=== PATIENT | female | born 1990 | race Two or more races ===

== ENCOUNTER 2023-06-08 17:58 | Emergency (ER) | payer MEDICAID, OTHER ==
[~2023-06-08] VITALS: Ht 152.4 cm; Wt 95.0 kg
[2023-06-08 18:03] VITALS: BP 101/59; RESP 16; O2SAT 98
[2023-06-08 18:04] VITALS: PULSE 82
[2023-06-08 18:25] LABS: Basophils # (auto) 0 10 ^3/uL (0-0.2); Basophils % (auto) 0.7 % (0.0-2.0); Eosinophils # (auto) 0.2 10 ^3/uL (0-0.8); Eosinophils % (auto) 2.5 % (0.0-7.0); Hematocrit 33.2 % (36.0-46.0); Hemoglobin 10.4 g/dL (12.2-16.2); Lymphocytes # (auto) 1.8 10 ^3/uL (0.4-5.4); Lymphocytes % (auto) 25.6 % (10.0-50.0); Mean Corpuscular Hemoglobin 22.8 pg (28.0-32.0); Mean Corpuscular Hgb Conc. 31.4 g/dL (32.0-36.0); Mean Corpuscular Volume 72.8 fL (80.0-100.0); Monocytes # (auto) 0.5 10 ^3/uL (0-1.3); Monocytes % (auto) 7.1 % (0.0-12.0); Neutrophils # (auto) 4.5 10 ^3/uL (1.6-8.6); Neutrophils % (auto) 64.1 % (37.0-80.0); Nucleated Red Blood Cells % 0.1 %; Red Blood Cells 4.56 10^6/uL (4.0-5.20)
[2023-06-08 18:44] LABS: Albumin 3.5 g/dL (3.4-5.0); Calcium 8.5 mg/dL (8.5-10.1); Potassium 3.6 mmol/L (3.5-5.1)
[2023-06-08 18:48] LABS: BUN/Creatinine Ratio 10.8 (10.0-20.0); Bilirubin, Total 0.4 mg/dL (0.2-1.0); Total Protein 7.7 g/dL (6.4-8.2)
== END 2023-06-09 03:14 | disposition home or self-care (01) ==
LOC: EDBD 17:58 → ER 17:58
DX: F41.0 Panic disorder [episodic paroxysmal anxiety] (principal); R10.2 Pelvic and perineal pain; R55 Syncope and collapse; R42 Dizziness and giddiness; Z86.79 Personal history of other diseases of the circulatory system; Z88.6 Allergy status to analgesic agent
CPT/HCPCS: 36415; 80053; 83735; 84484; 84702; 85025; 93005

== ENCOUNTER 2024-04-02 08:38 | Emergency (ER) | payer MEDICAID ==
[~2024-04-02] VITALS: Ht 152.4 cm; Wt 93.9 kg
[~2024-04-02 08:38] MED LIST: CLIN1CAP70 PO; HYDR-4902 PO
[2024-04-02 09:27] LABS: Basophils # (auto) 0 10 ^3/uL (0-0.2); Eosinophils # (auto) 0.1 10 ^3/uL (0-0.8); Eosinophils % (auto) 1.1 % (0.0-7.0); Mean Corpuscular Hemoglobin 22.1 pg (28.0-32.0); Red Cell Distribution Width 18.1 % (11.8-14.3)
[2024-04-02 09:29] LABS: Basophils % (auto) 0.4 % (0.0-2.0); Hematocrit 33.4 % (36.0-46.0); Hemoglobin 10.4 g/dL (12.2-16.2); Lymphocytes # (auto) 1.8 10 ^3/uL (0.4-5.4); Lymphocytes % (auto) 26.9 % (10.0-50.0); Mean Corpuscular Hgb Conc. 31.2 g/dL (32.0-36.0); Mean Corpuscular Volume 70.9 fL (80.0-100.0); Monocytes # (auto) 0.4 10 ^3/uL (0-1.3); Monocytes % (auto) 5.3 % (0.0-12.0); Neutrophils # (auto) 4.4 10 ^3/uL (1.6-8.6); Neutrophils % (auto) 66.3 % (37.0-80.0); Nucleated Red Blood Cells % 0.1 %; Red Blood Cells 4.71 10^6/uL (4.0-5.20); White Blood Cell 6.7 10^3/uL (4.4-10.8)
[2024-04-02 09:44] LABS: Anion Gap 6 (5-15); Carbon Dioxide 25 mmol/L (20-30); Chloride 108 mmol/L (98-107); Potassium 3.6 mmol/L (3.5-5.1); Sodium 139 mmol/L (136-145)
[2024-04-02 09:45] LABS: Calcium 9.4 mg/dL (8.5-10.1)
[2024-04-02 09:46] LABS: Urine Bacteria FEW /hpf (None Seen); Urine Blood Negative /uL (Negative); Urine Color Yellow (Yellow); Urine Protein, UAD TRACE (Negative); Urine Specific Gravity 1.037 (1.001-1.035); Urine Urobilinogen Normal (Negative); Urine WBC 1 /hpf (0 - 5)
[2024-04-02 09:47] LABS: Urine Clarity Hazy (Clear)
[2024-04-02 09:50] LABS: BUN/Creatinine Ratio 9.8 (10.0-20.0); Blood Urea Nitrogen 6 mg/dL (9-23); Glucose 106 mg/dL (74-106)
[2024-04-02] MEDS: HYDROcodone-ACET 10/325MG TAB PO ONE (10:53)
[2024-04-02 11:00] VITALS: BP 120/79; TEMP 98.4
[2024-04-02 11:03] VITALS: PULSE 79; RESP 17; O2SAT 96
[2024-04-02] MEDS ORDERED: HYDR-4902 PO (11:07)
== END 2024-04-02 11:23 | disposition home or self-care (01) ==
LOC: ER 08:38
DX: M79.18 Myalgia, other site (principal); F41.9 Anxiety disorder, unspecified; Z88.8 Allergy status to other drugs, medicaments and biological substances; Z86.2 Personal history of diseases of the blood and blood-forming organs and certain disorders involving the immune mechanism
CPT/HCPCS: 36415; 80048; 81001; 85025

== ENCOUNTER 2024-05-06 12:19 | Emergency (ER) | payer MEDICAID ==
[~2024-05-06] VITALS: Ht 152.4 cm; Wt 95.8 kg
[2024-05-06 13:34] VITALS: BP 118/70; PULSE 95; RESP 16; TEMP 98; O2SAT 97
[2024-05-06] MEDS ORDERED: BACL10TA PO (14:12)
== END 2024-05-06 14:24 | disposition home or self-care (01) ==
LOC: ER 12:28
DX: S76.912A Strain of unspecified muscles, fascia and tendons at thigh level, left thigh, initial encounter (principal); G89.29 Other chronic pain; M54.50 Low back pain, unspecified; X58.XXXA Exposure to other specified factors, initial encounter; Y93.89 Activity, other specified; Y92.89 Other specified places as the place of occurrence of the external cause; Y99.8 Other external cause status
CPT/HCPCS: 93971

== ENCOUNTER 2024-07-25 10:51 | Emergency (ER) | payer MEDICAID ==
[~2024-07-25] VITALS: Ht 152.4 cm; Wt 93.0 kg
[~2024-07-25 10:51] MED LIST changes: +BACL10TA PO
[2024-07-25 11:29] VITALS: BP 130/78; PULSE 90; RESP 16; TEMP 98.4; O2SAT 97
[2024-07-25] MEDS ORDERED: METO25TA5 PO (11:36)
[2024-07-25] MEDS: METOPROLOL TARTRATE 25 MG TAB PO ONE (11:43)
== END 2024-07-25 11:45 | disposition home or self-care (01) ==
LOC: ER 10:51
DX: R00.2 Palpitations (principal); Z76.0 Encounter for issue of repeat prescription; F41.9 Anxiety disorder, unspecified; Z79.899 Other long term (current) drug therapy; Z98.890 Other specified postprocedural states

== ENCOUNTER 2024-12-31 20:42 | Emergency (ER) | payer MEDICAID ==
[~2024-12-31] VITALS: Ht 152.4 cm; Wt 94.4 kg
[~2024-12-31 20:42] MED LIST changes: +METO25TA5 PO
[2024-12-31 21:03] VITALS: BP 137/80; PULSE 94; RESP 20; TEMP 99; O2SAT 96
[2024-12-31] MEDS ORDERED: MET25T PO (22:07)
--- NOTE | 2024-12-31 22:08 | ED.PDOC ---
HPI Comments 34-YEAR-OLD FEMALE PRESENTS TO ER FOR MEDICATION REFILL. PATIENT REPORTS THAT SHE RAN OUT HER METOPROLOL 25 MG B.I.D. THIS MORNING AND PRESENTS TO ER FOR MEDICATION REFILL OF HIS MEDICATION. STATES SHE TAKES THIS MEDICATION FOR "TACHYCARDIA" AND IS GOING TO BE FOLLOWING UP WITH HER NEW PRIVATE BRANCH EXCHANGE OPERATOR NEXT WEEK. PATIENT PRESENTS TO ER AMBULATORY ON ARRIVAL, WITH STEADY GAIT, IN NO DISTRESS AND STATES SHE CURRENTLY IS NOT EXPERIENCING ANY SYMPTOMS. DENIES SHORTNESS OF BREATH, CHEST PAIN, PALPITATIONS, SYNCOPE OR ANY FURTHER SYMPTOMS/COMPLAINTS Chief Complaint: Palpitations Time Seen by MD: 20:44 Primary Care Provider: JANNET Reviewed Notes: Nurses Notes, Medications, Allergies Allergies: Coded Allergies: NSAIDs (Verified Allergy, Unknown, 06/08/23) Home Meds Active Scripts Metoprolol Tartrate (Metoprolol Tartrate) 25 Mg Tab, 1 TAB PO BID, #14 TAB 0 Refills Prov:WILLIE CORDERO 12/31/24 Metoprolol Tartrate (Metoprolol Tartrate) 25 Mg Tab, 1 TAB PO BID, #60 TAB 2 Refills Prov:ELIU LYNN 07/25/24 Baclofen (Baclofen) 10 Mg Tab, 10 MG PO BID, #20 TAB Prov:JOSY MARIANO 05/06/24 Hydrocodone-Acetaminophen (Hydrocodone Bitartrate/AC 5-325 mg) 1 Tab Tab, 1 TAB PO DAILY for 3 Days, #3 TAB Prov:ESTHELA LACY MD 04/02/24 Hydrocodone-Acetaminophen (Hydrocodone Bitartrate/AC 5-325 mg) 1 Tab Tab, 1 TAB PO Q6HPRN PRN, #10 TAB As needed for pain Prov:JENNA ALTAMIRANOA Q VOLUNTEER SERVICES MANAGER 01/24/24 Clindamycin Hcl (Clindamycin Hcl) 300 Mg Cap, 1 CAP PO QID for 10 Days, #40 CAP Prov:HARLAN ALTAMIRANOALDA Q VOLUNTEER SERVICES MANAGER 01/24/24 Discontinued Reported Medications Metoprolol Tartrate (Lopressor) 25 Mg Tb, 1 TAB PO BID, #14 12/31/24 Information Source: Patient Mode of Arrival: Ambulatory Past Medical History PAST MEDICAL HISTORY: Anemia, Anxiety, UTI'S Past Medical History (Other): SVT Surgical History: NURSE SITTER History: Denies all NURSE SITTER Hx Family History Family History: Unknown Social History Smoker: Non-Smoker Alcohol: Denies ETOH Use Drugs: Denies Drug Use Lives In: Home Constitutional: denies: chills, diaphoresis, fatigue, fever, malaise, sweats, weakness, others EENTM: denies: blurred vision, double vision, ear bleeding, ear discharge, ear drainage, ear pain, ear ringing, eye pain, eye redness, hearing loss, mouth pain, mouth swelling, nasal discharge, nose bleeding, nose congestion, nose pain, photophobia, tearing, throat pain, throat swelling, voice changes, others Respiratory: denies: cough, hemoptysis, orthopnea, SOB at rest, shortness of breath, SOB with excertion, stridor, wheezing, others Cardiovascular: reports: others ( STATED IN HPI) Gastrointestinal: denies: abdomen distended, abdominal pain, blood streaked bowels, constipated, diarrhea, dysphagia, difficulty swallowing, hematemesis, melena, nausea, poor appetite, poor fluid intake, rectal bleeding, rectal pain, vomiting, others Genitourinary: denies: abnormal vagina bleeding, burning, dyspareunia, dysuria, flank pain, frequency, hematuria, incontinence, pain, , vagina discharge, urgency, others Neurological: denies: dizziness, fainting, headache, left sided numbness, left sided weakness, numbness, paresthesia, pre-existing deficit, right sided numbness, right sided weakness, seizure, speech problems, tingling, tremors, weakness, others Musculoskeletal: denies: back pain, gout, joint pain, joint swelling, muscle pain, muscle stiffness, neck pain, others Integumetry: denies: bruises, change in color, change in hair/nails, dryness, laceration, lesions, lumps, rash, wounds, others Allergic/Immunocompromised: denies: Difficulty Healing, Frequent Infections, Hives, Itching, others Hematologic/Lymphatic: denies: anemia, blood clots, easy bleeding, easy bruising, swollen glands, others Endocrine: denies: excessive hunger, excessive sweating, excessive thirst, excessive urination, flushing, intolerance to cold, intolerance to heat, unexplained weight gain, unexplained weight loss, others Psychiatric: denies: anxiety, bipolar disorder, depression, hopeless, panic disorder, schizophrenia, sleepless, suicidal, others Physical Exam General Appearance: No Apparent Distress, Obese HEENT: Normal ENT Inspection, PERRL/EOMI, Pharynx Normal, TMs Normal Neck: Full Range of Motion, Non-Tender, Normal Respiratory: Chest Non-Tender, Lungs Clear, No Accessory Muscle Use, No Respiratory Distress, Normal Breath Sounds Cardiovascular: No Murmur, No Gallop, Regular Rate/Rhythm Breast Exam: Deferred Gastrointestinal: NOT DONE Genitalia: Deferred Pelvic: Deferred Rectal: Deferred Extremities: Normal capillary refill, Normal range of motion Neurologic: Alert, tie bucker II-XII nml as Tested, No Motor Deficits, Normal Affect, Normal Mood, No Sensory Deficits Cerebellar Function: Normal Reflexes: Normal Skin: Dry, Normal Color, Warm Peripheral Pulses: 2+ Radial (R), 2+ Radial (L), 2+ Brachial (R), 2+ Brachial (L) Lymphatic: No Adenopathy Was a procedure done? Was a procedure done?: No Sedation Sedation?: No CP Differential Dx Differential Diagnosis: Anxiety / Panic Attack, CA, PSVT, Pulmonary Embolus X-Ray, Labs, Meds, VS Vital Signs Date Time Temp Pulse Resp B/P (MAP) Pulse Ox O2 Delivery O2 Flow Rate FiO2 12/31/24 22:25 94 137/80 12/31/24 21:03 99.0 94 20 137/80 (99) 96 Current Medications Medications (Trade) Dose Ordered Sig/Katrina Route Start Time Stop Time Status Last Admin Metoprolol Tartrate (Lopressor Tablet) 25 mg ONCE ONCE PO 12/31/24 22:15 12/31/24 22:16 DC 12/31/24 22:25 METOPROLOL 25 MG PO ORDERED PATIENT ASYMPTOMATIC DURING ER VISIT/PRIOR TO DISCHARGE ADVISED TO FOLLOW UP WITH PCP AND PRIVATE BRANCH EXCHANGE OPERATOR IN 1-2 DAYS PATIENT VERBALIZED UNDERSTANDING AND AGREEABLE WITH CURRENT PLAN OF CARE ADVISED TO RETURN TO ER IMMEDIATELY IF SYMPTOMS WORSEN Time of 1ST Reevaluation: 21:44 Reevaluation 1ST: N/A Patient Education/Counseling: Diagnosis, Treatment, Prognosis, Need For Follow Up Family Education/Counseling: No Family Present Departure 1 Departure Time of Disposition: 22:02 Impression: Primary Impression: Medication refill Additional Impression: History of supraventricular tachycardia Disposition: HOME / SELF CARE / HOMELESS Condition: Stable e-Prescriptions Metoprolol Tartrate (Metoprolol Tartrate) 25 Mg Tab 1 TAB PO BID, #14 TAB 0 Refills Prov: WILLIE CORDERO 12/31/24 Discharged With: Self Critical Care Note Critical Care Time?: No Stability Stability form required: No Heart Score Heart Score: Heart Score Response (Comments) Value History N/A 0 EKG N/A 0 Age N/A 0 Risk Factors N/A 0 Troponin N/A 0 Total 0 WILLIE CORDERO Dec 31, 2024 22:08
[2024-12-31] MEDS: METOPROLOL TARTRATE 25 MG TAB PO ONE (22:25)
[2024-12-31] MEDS ORDERED: METO25TA5 PO (22:28)
== END 2024-12-31 22:45 | disposition home or self-care (01) ==
LOC: ER 20:42
DX: R00.0 Tachycardia, unspecified (principal); Z76.0 Encounter for issue of repeat prescription; Z86.79 Personal history of other diseases of the circulatory system; F41.9 Anxiety disorder, unspecified; Z79.899 Other long term (current) drug therapy; Z98.890 Other specified postprocedural states; Z79.1 Long term (current) use of non-steroidal anti-inflammatories (NSAID)

== ENCOUNTER 2025-02-18 13:18 | Emergency (ER) | payer MEDICAID ==
[~2025-02-18] VITALS: Ht 152.4 cm; Wt 94.0 kg
--- NOTE | 2025-02-18 13:28 | ECG ---
[facility] Test Date: 2025-02-18 Test Time: 13:26:51 Pat Name: TREMAINE MEZA Department: ER Room: Gender: F Medical Supervisor: [place] : 1990 Requested By: RASHMI ANGUIANO Order Number: [id number] Reading MD: Measurements Intervals [place] Rate: 98 P: 46 MA: 122 QRS: 21 QRSD: 82 T: -33 QT: 386 QTc: 493 Interpretive Statements Sinus rhythm Borderline T abnormalities, diffuse leads Borderline prolonged QT interval Please click the below link to view image of tracing.
--- NOTE | 2025-02-18 14:08 | ED.PDOC ---
HPI Comments 34 year old female presents to the ED with chief complaint of chest pain. Patient reports that she has been experiencing left sided chest pressure/aching with associated palpitations lightheadedness, and SOB with exertion since earlier today in [facility]. Patient relays that she has history of anemia and her last menses was heavy. Patient states she currently takes Metoprolol for intermittent tachycardia. Patient denies any dizziness, headache, numbness, weakness, cough, or fever. Chief Complaint: Chest Pain Time Seen by MD: 14:02 Primary Care Provider: NICKY Reviewed Notes: Nurses Notes, Medications, Allergies Allergies: Coded Allergies: NSAIDs (Verified Allergy, Unknown, 06/08/23) Home Meds Active Scripts Metoprolol Tartrate (Metoprolol Tartrate) 25 Mg Tab, 1 TAB PO BID, #14 TAB 0 Refills Prov:WILLIE CORDERO 12/31/24 Metoprolol Tartrate (Metoprolol Tartrate) 25 Mg Tab, 1 TAB PO BID, #60 TAB 2 Refills Prov:ELIU LYNN 07/25/24 Baclofen (Baclofen) 10 Mg Tab, 10 MG PO BID, #20 TAB Prov:JOSY MARIANO 05/06/24 Hydrocodone-Acetaminophen (Hydrocodone Bitartrate/AC 5-325 mg) 1 Tab Tab, 1 TAB PO DAILY for 3 Days, #3 TAB Prov:ESTHELA LACY MD 04/02/24 Hydrocodone-Acetaminophen (Hydrocodone Bitartrate/AC 5-325 mg) 1 Tab Tab, 1 TAB PO Q6HPRN PRN, #10 TAB As needed for pain Prov:TEJA ALTAMIRANO Q NEUROPHYSIOLOGY TECH 01/24/24 Clindamycin Hcl (Clindamycin Hcl) 300 Mg Cap, 1 CAP PO QID for 10 Days, #40 CAP Prov:TEJA ALTAMIRANO Q NEUROPHYSIOLOGY TECH 01/24/24 Information Source: Patient, Relative Mode of Arrival: Wheelchair Severity: Moderate Timing: Days Duration: Intermittent Prehospital treatment: None Location: Chest (L) Radiation: No Radiation Quality: Pressure, Aching Onset: At Rest, With Light Exertion History of: Similar pain in past Associated Signs and Symptoms: SOB, Palpitations Past Medical History PAST MEDICAL HISTORY: Anemia, Anxiety, UTI'S Surgical History: , Tubal Ligation CASH CLERK History: Denies all CASH CLERK Hx Family History Family History: Unknown Social History Smoker: Non-Smoker Alcohol: Denies ETOH Use Drugs: Denies Drug Use Lives In: Home Constitutional: denies: chills, diaphoresis, fatigue, fever, malaise, sweats, weakness, others EENTM: denies: blurred vision, double vision, ear bleeding, ear discharge, ear drainage, ear pain, ear ringing, eye pain, eye redness, hearing loss, mouth pain, mouth swelling, nasal discharge, nose bleeding, nose congestion, nose pain, photophobia, tearing, throat pain, throat swelling, voice changes, others Respiratory: reports: SOB with excertion; denies: cough, hemoptysis, orthopnea, SOB at rest, shortness of breath, stridor, wheezing, others Cardiovascular: reports: chest pain, lightheadedness, palpitations; denies: dizzy spells, diaphoresis, Dyspnea on exertion, edema, irregular heart beat, left arm pain, PND, syncope, others Gastrointestinal: denies: abdomen distended, abdominal pain, blood streaked bowels, constipated, diarrhea, dysphagia, difficulty swallowing, hematemesis, melena, nausea, poor appetite, poor fluid intake, rectal bleeding, rectal pain, vomiting, others Genitourinary: denies: abnormal vagina bleeding, burning, dyspareunia, dysuria, flank pain, frequency, hematuria, incontinence, pain, , vagina discharge, urgency, others Neurological: denies: dizziness, fainting, headache, left sided numbness, left sided weakness, numbness, paresthesia, pre-existing deficit, right sided numbness, right sided weakness, seizure, speech problems, tingling, tremors, weakness, others Musculoskeletal: denies: back pain, gout, joint pain, joint swelling, muscle pain, muscle stiffness, neck pain, others Integumetry: denies: bruises, change in color, change in hair/nails, dryness, laceration, lesions, lumps, rash, wounds, others Allergic/Immunocompromised: denies: Difficulty Healing, Frequent Infections, Hives, Itching, others Hematologic/Lymphatic: denies: anemia, blood clots, easy bleeding, easy bruising, swollen glands, others Endocrine: denies: excessive hunger, excessive sweating, excessive thirst, excessive urination, flushing, intolerance to cold, intolerance to heat, unexplained weight gain, unexplained weight loss, others Psychiatric: denies: anxiety, bipolar disorder, depression, hopeless, panic disorder, schizophrenia, sleepless, suicidal, others All Other Systems: Reviewed and Negative Physical Exam General Appearance: Mild Distress HEENT: Other (Pupils and face symmetric. Moist mucous membranes.) Neck: Full Range of Motion, Normal Inspection Respiratory: Lungs Clear, No Accessory Muscle Use, No Respiratory Distress, Normal Breath Sounds Cardiovascular: No Edema, No JVD, Regular Rate/Rhythm Breast Exam: Deferred Gastrointestinal: Non Tender, Soft Genitalia: Deferred Pelvic: Deferred Rectal: Deferred Extremities: Normal inspection, Normal range of motion, Non-tender, No pedal edema Musculoskeletal : Apperance: Normal Neurologic: Alert, Normal Affect, Normal Mood, Other (Ambulatory without difficulty.) Cerebellar Function: NOT DONE Reflexes: NOT DONE Skin: Dry, Pallor, Warm Lymphatic: NOT DONE EKG EKG : Comments Sinus rhythm, rate 95, normal intervals, normal axis, normal QRS, nonspecific T changes. Was a procedure done? Was a procedure done?: No CP Differential Dx Differential Diagnosis: Angina, Anxiety / Panic Attack, Heart Failure, MA, Pu lmonary Embolus, Other (Anemia) Differential Diagnosis: Aortic dissection, Chest Wall Pain, Gastritis, [place] cardial Infarction, Pericarditis, Pneumonia X-Ray, Labs, Meds, VS Vital Signs Date Time Temp Pulse Resp B/P (MAP) Pulse Ox O2 Delivery O2 Flow Rate FiO2 02/18/25 17:36 85 16 99 Room Air 02/18/25 17:36 98.2 85 16 105/52 (69) 99 98.2 02/18/25 14:20 95 02/18/25 13:54 95 130/77 98 138/82 97 141/82 02/18/25 13:26 98 02/18/25 13:20 98.5 95 18 130/77 (94) 97 98.5 Lab Test 02/18/25 17:55 02/18/25 14:34 02/18/25 13:35 02/18/25 13:25 Range/Units Urine Color Colorless Yellow Urine Clarity Clear Clear Urine pH 6.5 5.0-9.0 Urine Specific [place] 1.006 1.001-1.035 Urine Protein Negative Negative Urine Ketones Negative Negative Urine Blood Negative Negative /uL Urine Nitrite Negative Negative Urine Bilirubin Negative Negative Urine Urobilinogen Normal Negative mg/dL Urine Leukocyte Esterase Negative Negative /uL Urine RBC <1 0 - 4 /hpf Urine Microscopic WBC Pending Urine Squamous Epithelial Cells Few <5 /hpf Urine Bacteria Few H None Seen /hpf Urine Glucose Normal Normal mg/dL Sodium Level 139 136-145 mmol/L Potassium Level 3.7 3.5-5.1 mmol/L Chloride Level 104 98-107 mmol/L Carbon Dioxide Level 27 20-31 mmol/L Anion Gap 8 5-15 Blood Urea Nitrogen 6 L 9-23 mg/dL Creatinine 0.65 0.550-1.02 mg/dL Glomerular Filtration Rate Calc 119 >90 mL/min BUN/Creatinine Ratio 9.2 L 10.0-20.0 Serum Glucose 131 H 74-106 mg/dL Calcium Level 9.3 8.7-10.4 mg/dL Troponin I High Sensitivity < 3 L < 3 L </=34 ng/L POC Glucose 135 H 70-106 mg/dl White Blood Count 6.6 4.4-10.8 10^3/uL Red Blood Count 4.43 4.0-5.20 10^6/uL Hemoglobin 10.0 L 12.2-16.2 g/dL Hematocrit 31.8 L 36.0-46.0 % Mean Corpuscular Volume 71.7 L 80.0-100.0 fL Mean Corpuscular Hemoglobin 22.6 L 28.0-32.0 pg Mean Corpuscular Hemoglobin Concent 31.5 L 32.0-36.0 g/dL Red Cell Distribution Width 19.4 H 11.8-14.3 % Platelet Count 299 140-450 10^3/uL Mean Platelet Volume 8.9 6.9-10.8 fL Neutrophils (%) (Auto) 63.6 37.0-80.0 % Lymphocytes (%) (Auto) 31.6 10.0-50.0 % Monocytes (%) (Auto) 3.7 0.0-12.0 % Eosinophils (%) (Auto) 0.8 0.0-7.0 % Basophils (%) (Auto) 0.3 0.0-2.0 % Neutrophils # (Auto) 4.2 1.6-8.6 10 ^3/uL Lymphocytes # (Auto) 2.1 0.4-5.4 10 ^3/uL Monocytes # (Auto) 0.2 0-1.3 10 ^3/uL Eosinophils # (Auto) 0.1 0-0.8 10 ^3/uL Basophils # (Auto) 0 0-0.2 10 ^3/uL Nucleated Red Blood Cells 0.3 % Prothrombin Time 10.7 9.3-11.8 sec Prothrombin Time INR 1.01 0.9-1.15 Activated Partial Thromboplast Time 29.2 24.5-34.5 SEC D-Dimer, Quantitative 0.23 0.0-0.49 mg/L FEU B-Type Natriuretic Peptide 10.26 0-100 pg/mL Current Medications Medications (Trade) Dose Ordered Sig/Katrina Route Start Time Stop Time Status Last Admin Sodium Chloride 1,000 ml @ 1,000 mls/hr Q1H ONCE IV 02/18/25 17:30 02/18/25 18:29 DC 02/18/25 17:52 Chest XR: IMPRESSION: 1. No acute cardiopulmonary disease. X-Ray, Labs, Meds, VS Comment 34-year-old female with a history of anemia and tachycardia on metoprolol brought in by family for evaluation of chest pain, generalized weakness, lightheadedness, palpitations and shortness a breath Vitals unremarkable Exam remarkable for pallor Rhythm strip independently interpreted by me: Sinus rhythm, rate 95, no ectopy. Chest x-ray unremarkable CBC remarkable for hemoglobin 10, hematocrit 31.8, metabolic panel unremarkable, BNP and troponin x2 negative, coag panel normal, D-dimer Patient treated with the following in the ED: 1 L 0.9 normal saline IV bolus, [place] 5/325 mg p.o. Hospitalization was considered and was offered to the patient, however patient had rapid improvement of symptoms with treatment in the ED, and she stated she did not want to be hospitalized and would prefer to follow-up with her primary physician as an outpatient. Preliminary workup is negative, patient is now asymptomatic and appears stable for discharge with close outpatient follow-up with her primary physician. Time of 1ST Reevaluation: 15:02 Reevaluation 1ST: Improved Patient Education/Counseling: Diagnosis, Treatment Family Education/Counseling: Diagnosis, Treatment Additional Information -Reviewed patient's previous visit(s): 12/31/24 for med refill - The following tests were ordered, and results were reviewed by me: Type/Screen, BMP, CBC, BNP, PTPTT, UA, Troponin, EKG, Chest XR - Additional information was gathered from interviewing the following independent Historian: Family - I reviewed and agreed with the following test results read by other provider: Chest XR - I discussed treatments and results with medical personnel and: patient and family Comprehensive systems review obtained and negative except for what is stated in the HPI. Departure 1 Departure Time of Disposition: 19:18 Impression: Primary Impression: Chest pain with low risk for cardiac etiology Additional Impression: Anemia Qualified Codes: D64.9 - Anemia, unspecified Disposition: HOME / SELF CARE / HOMELESS Condition: Stable Additional Instructions: Your blood tests, including screening test for heart attack, heart failure, and blood clots, were essentially unremarkable except for mild anemia. You do not require blood transfusion at this time. Follow-up with your primary doctor in 1-2 days and with your label printing machinist as scheduled. Discharged With: Relative Critical Care Note Critical Care Time?: No Stability Stability form required: No Heart Score Heart Score: Heart Score Response (Comments) Value History Moderate Suspicious 1 EKG Repolarization Disturb 1 Age <45 0 Risk Factors No known risk factors 0 Troponin Normal limit 0 Total 2 I personally scribed for RASHMI SHELL MD ([email or web address]) on 02/18/25 at 14:08. Electronically submitted by Aren Poe ([email or web address]). I personally scribed for RASHMI SHELL MD ([email or web address]) on 02/18/25 at 15:25. Electronically submitted by Aren Poe ([email or web address]). RASHMI SHELL MD Feb 18, 2025 14:08
--- NOTE | 2025-02-18 14:38 | DVH ---
CHEST RADIOGRAPH Indication: cp Technique: Single frontal view of the chest was obtained Comparison: None FINDINGS: Lines and Tubes: None Lungs: No focal consolidation. Pleura: No effusion. No pneumothorax. Cardiomediastinal contours: Unremarkable Bones: No acute osseous abnormality. IMPRESSION: 1. No acute cardiopulmonary disease.
[2025-02-18 14:51] LABS: Basophils # (auto) 0 10 ^3/uL (0-0.2); Basophils % (auto) 0.3 % (0.0-2.0); Eosinophils # (auto) 0.1 10 ^3/uL (0-0.8); Mean Corpuscular Hemoglobin 22.6 pg (28.0-32.0); Monocytes # (auto) 0.2 10 ^3/uL (0-1.3)
[2025-02-18 14:52] LABS: Eosinophils % (auto) 0.8 % (0.0-7.0); Hematocrit 31.8 % (36.0-46.0); Lymphocytes # (auto) 2.1 10 ^3/uL (0.4-5.4); Lymphocytes % (auto) 31.6 % (10.0-50.0); Mean Corpuscular Hgb Conc. 31.5 g/dL (32.0-36.0); Mean Corpuscular Volume 71.7 fL (80.0-100.0); Monocytes % (auto) 3.7 % (0.0-12.0); Neutrophils # (auto) 4.2 10 ^3/uL (1.6-8.6); Neutrophils % (auto) 63.6 % (37.0-80.0); Nucleated Red Blood Cells % 0.3 %; Platelet Count (auto) 299 10^3/uL (140-450); Red Blood Cells 4.43 10^6/uL (4.0-5.20); Red Cell Distribution Width 19.4 % (11.8-14.3); White Blood Cell 6.6 10^3/uL (4.4-10.8)
[2025-02-18 15:06] LABS: INR 1.01 (0.9-1.15); Partial Thromboplastin Time 29.2 SEC (24.5-34.5); Prothrombin Time 10.7 sec (9.3-11.8)
[2025-02-18 15:19] LABS: Chloride 104 mmol/L (98-107); Potassium 3.7 mmol/L (3.5-5.1); Sodium 139 mmol/L (136-145)
[2025-02-18 15:20] LABS: Anion Gap 8 (5-15); Carbon Dioxide 27 mmol/L (20-31)
[2025-02-18 15:21] LABS: Calcium 9.3 mg/dL (8.7-10.4)
[2025-02-18 15:25] LABS: BUN/Creatinine Ratio 9.2 (10.0-20.0)
[2025-02-18 15:27] LABS: Blood Urea Nitrogen 6 mg/dL (9-23); Glucose 131 mg/dL (74-106)
[2025-02-18] MEDS: HYDROcodone-ACET 5/325MG TAB PO ONE (17:51)
[2025-02-18] MEDS: SODIUM CHLORIDE 0.9% 1,000 ML IV ONE (17:52)
[2025-02-18 19:08] LABS: Urine Bacteria FEW /hpf (None Seen); Urine Blood Negative /uL (Negative); Urine Clarity Clear (Clear); Urine Color Colorless (Yellow); Urine Protein, UAD Negative (Negative); Urine Specific Gravity 1.006 (1.001-1.035); Urine Squamous Epithelial Cell FEW /hpf (<5); Urine Urobilinogen Normal (Negative); Urine pH 6.5 (5.0-9.0)
[2025-02-18 19:25] VITALS: BP 123/57; TEMP 98
[2025-02-18 19:30] VITALS: PULSE 79; RESP 16; O2SAT 100
[2025-02-18 19:40] LABS: Urine WBC < 1 /HPF (0-5)
--- NOTE | 2025-02-20 12:54 | ECG ---
[facility] Test Date: 2025-02-18 Test Time: 14:20:07 Pat Name: TREMAINE MEZA Department: ED Room: Gender: F Public Policy Mediator: FARHAD : 1990 Requested By: RASHMI ANGUIANO Order Number: [id number] Reading MD: Measurements Intervals [place] Rate: 95 P: 12 NV: 132 QRS: 13 QRSD: 79 T: -7 QT: 347 QTc: 436 Interpretive Statements Sinus rhythm Borderline T abnormalities, diffuse leads Baseline wander in lead(s) V5 Please click the below link to view image of tracing.
== END 2025-02-18 19:53 | disposition home or self-care (01) ==
LOC: ER 13:18
DX: R07.89 Other chest pain (principal); D64.9 Anemia, unspecified; F41.9 Anxiety disorder, unspecified; Z98.51 Tubal ligation status; Z98.890 Other specified postprocedural states; Z79.899 Other long term (current) drug therapy; Z79.1 Long term (current) use of non-steroidal anti-inflammatories (NSAID)
CPT/HCPCS: 36415; 71045; 80048; 81001; 82947; 83880; 84484; 85025; 85379; 85610; 85730; 86850; 86900; 86901; 93005; 96360; 99285; J7030; 82962

== ENCOUNTER 2025-04-12 23:15 | Emergency (ER) | payer MEDICAID ==
[~2025-04-12] VITALS: Ht 152.4 cm; Wt 94.0 kg
[2025-04-12 23:22] VITALS: BP 133/82; RESP 20; TEMP 98.5; O2SAT 100
[2025-04-13] MEDS ORDERED: SODIUM CHLORIDE 0.9% 1,000 ML IV ONE (00:30)
[2025-04-13 00:32] LABS: Basophils # (auto) 0 10 ^3/uL (0-0.2); Basophils % (auto) 0.2 % (0.0-2.0); Eosinophils # (auto) 0.1 10 ^3/uL (0-0.8); Eosinophils % (auto) 0.8 % (0.0-7.0); Hematocrit 36.3 % (36.0-46.0); Hemoglobin 11.9 g/dL (12.2-16.2); Lymphocytes # (auto) 1.6 10 ^3/uL (0.4-5.4); Lymphocytes % (auto) 17.7 % (10.0-50.0); Mean Corpuscular Hemoglobin 25.2 pg (28.0-32.0); Mean Corpuscular Hgb Conc. 32.7 g/dL (32.0-36.0); Monocytes # (auto) 0.5 10 ^3/uL (0-1.3); Monocytes % (auto) 5.5 % (0.0-12.0); Neutrophils # (auto) 6.6 10 ^3/uL (1.6-8.6); Neutrophils % (auto) 75.8 % (37.0-80.0); Nucleated Red Blood Cells % 0.1 %; Platelet Count (auto) 294 10^3/uL (140-450); Red Blood Cells 4.71 10^6/uL (4.0-5.20); Red Cell Distribution Width 19.9 % (11.8-14.3); White Blood Cell 8.8 10^3/uL (4.4-10.8)
[2025-04-13 00:34] VITALS: PULSE 88
[2025-04-13 00:41] LABS: Urine Bacteria None Seen /hpf (None Seen)
[2025-04-13 00:42] LABS: Anion Gap 10 (5-15); Carbon Dioxide 23 mmol/L (20-31); Chloride 107 mmol/L (98-107); Sodium 140 mmol/L (136-145)
[2025-04-13 00:43] LABS: Calcium 8.9 mg/dL (8.7-10.4)
[2025-04-13 00:48] LABS: BUN/Creatinine Ratio 10.9 (10.0-20.0)
[2025-04-13 00:50] LABS: Urine Blood Negative /uL (Negative); Urine Clarity Turbid (Clear); Urine Color Colorless (Yellow); Urine Protein, UAD Negative (Negative); Urine Specific Gravity 1.003 (1.001-1.035); Urine Squamous Epithelial Cell FEW /hpf (<5); Urine Urobilinogen Normal (Negative); Urine WBC < 1 /HPF (0-5)
[2025-04-13 00:57] LABS: Blood Urea Nitrogen 6 mg/dL (9-23); Glucose 174 mg/dL (74-106); Potassium 3.5 mmol/L (3.5-5.1)
--- NOTE | 2025-04-13 01:27 | DVH ---
EXAM: XY CHEST XRAY 1 VIEW CLINICAL HISTORY: cp TECHNIQUE: Single AP view of the chest WID: COMPARISON: XY CHEST PORTABLE on DOS: 02/18/25 FINDINGS: Lines and tubes: None Chest: The heart size and pulmonary vasculature is within normal limits. No pleural effusion, pneumothorax, or consolidation. The osseous structures are grossly intact. IMPRESSION: No acute cardiopulmonary abnormality.
--- NOTE | 2025-04-13 01:33 | ED.PDOC ---
HPI Comments 34-year-old female complaining of palpitations and mild chest pain. Patient reports a history of tachycardia. States she takes metoprolol 25 mg b.i.d.. States she took two pills earlier in the day and did not feel any significant improvement she took a 3rd pill. States she called EMS because she is still feeling the palpitations. Says she has worn a Holter monitor she has seen Cardiology and they still have not given her a definitive diagnosis. States she has been dealing with this for the last two years. States palpitations come on unprovoked. Nothing makes it better, nothing makes it worse Chief Complaint: Chest Pain Time Seen by MD: 23:17 Primary Care Provider: NICKY Reviewed Notes: Nurses Notes Allergies: Coded Allergies: NSAIDs (Verified Allergy, Unknown, 06/08/23) Home Meds Active Scripts Metoprolol Tartrate (Metoprolol Tartrate) 25 Mg Tab, 1 TAB PO BID, #14 TAB 0 Refills Prov:WILLIE OCRDERO 12/31/24 Metoprolol Tartrate (Metoprolol Tartrate) 25 Mg Tab, 1 TAB PO BID, #60 TAB 2 Refills Prov:ELIU LYNN 07/25/24 Baclofen (Baclofen) 10 Mg Tab, 10 MG PO BID, #20 TAB Prov:JOSY MARIANO 05/06/24 Hydrocodone-Acetaminophen (Hydrocodone Bitartrate/AC 5-325 mg) 1 Tab Tab, 1 TAB PO DAILY for 3 Days, #3 TAB Prov:ESTHELA LACY MD 04/02/24 Hydrocodone-Acetaminophen (Hydrocodone Bitartrate/AC 5-325 mg) 1 Tab Tab, 1 TAB PO Q6HPRN PRN, #10 TAB As needed for pain Prov:TEJA ALTAMIRANO Q [employer]ING [employer] 01/24/24 Clindamycin Hcl (Clindamycin Hcl) 300 Mg Cap, 1 CAP PO QID for 10 Days, #40 CAP Prov:JENNA ALTAMIRANOA Q [employer]ING OPERATOR 01/24/24 Information Source: Patient Mode of Arrival: Ambulatory Severity: Moderate Past Medical History PAST MEDICAL HISTORY: Anemia, Anxiety, UTI'S Surgical History: , Tubal 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 History: Denies 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 Family History Family History: Unknown Social History Smoker: Non-Smoker Alcohol: Denies ETOH Use Drugs: Denies Drug Use Lives In: Home Constitutional: denies: chills, diaphoresis, fatigue, fever, malaise, sweats, weakness, others EENTM: denies: blurred vision, double vision, ear bleeding, ear discharge, ear drainage, ear pain, ear ringing, eye pain, eye redness, hearing loss, mouth pain, mouth swelling, nasal discharge, nose bleeding, nose congestion, nose pain, photophobia, tearing, throat pain, throat swelling, voice changes, others Cardiovascular: reports: chest pain, irregular heart beat; denies: dizzy spells, diaphoresis, Dyspnea on exertion, edema, left arm pain, lightheadedness, palpitations, PND, syncope, others Gastrointestinal: denies: abdomen distended, abdominal pain, blood streaked bowels, constipated, diarrhea, dysphagia, difficulty swallowing, hematemesis, melena, nausea, poor appetite, poor fluid intake, rectal bleeding, rectal pain, vomiting, others Genitourinary: denies: abnormal vagina bleeding, burning, dyspareunia, dysuria, flank pain, frequency, hematuria, incontinence, pain, , vagina discharge, urgency, others Neurological: denies: dizziness, fainting, headache, left sided numbness, left sided weakness, numbness, paresthesia, pre-existing deficit, right sided numbness, right sided weakness, seizure, speech problems, tingling, tremors, weakness, others Musculoskeletal: denies: back pain, gout, joint pain, joint swelling, muscle pain, muscle stiffness, neck pain, others Integumetry: denies: bruises, change in color, change in hair/nails, dryness, laceration, lesions, lumps, rash, wounds, others Allergic/Immunocompromised: denies: Difficulty Healing, Frequent Infections, Hives, Itching, others Physical Exam General Appearance: No Apparent Distress, Normal HEENT: Normal ENT Inspection, Pharynx Normal, TMs Normal Neck: Full Range of Motion, Non-Tender, Normal, Normal Inspection Respiratory: Chest Non-Tender, Lungs Clear, No Accessory Muscle Use, No Respiratory Distress, Normal Breath Sounds Cardiovascular: No Edema, No JVD, No Murmur, No Gallop, Normal Peripheral Pulses, Regular Rate/Rhythm Breast Exam: Deferred Gastrointestinal: No Organomegaly, Non Tender, No Pulsatile Mass, Normal Bowel Sounds, Soft Genitalia: Deferred Pelvic: Deferred Rectal: Deferred Extremities: No calf tenderness, Normal capillary refill, Normal inspection, Normal range of motion, Non-tender, No pedal edema Musculoskeletal : Apperance: Normal Neurologic: Alert, scale attendant II-XII nml as Tested, No Motor Deficits, Normal Affect, Normal Mood, No Sensory Deficits Cerebellar Function: Normal Reflexes: Normal Skin: Dry, Normal Color, Warm Lymphatic: No Adenopathy Was a procedure done? Was a procedure done?: No CP Differential Dx Differential Diagnosis: A-fib, A-Flutter, Angina, Anxiety / Panic Attack, [place] X-Ray, Labs, Meds, VS Vital Signs Date Time Temp Pulse Resp B/P (MAP) Pulse Ox O2 Delivery O2 Flow Rate FiO2 04/13/25 00:34 88 04/12/25 23:25 109 04/12/25 23:22 98.5 107 20 133/82 (99) 100 98.5 Lab Test 04/13/25 00:18 04/12/25 23:33 04/12/25 23:22 Range/Units Troponin I High Sensitivity < 3 L < 3 L </=34 ng/L Urine Color Colorless Yellow Urine Clarity Turbid H Clear Urine pH 6.0 5.0-9.0 Urine Specific [place] 1.003 1.001-1.035 Urine Protein Negative Negative Urine Ketones Negative Negative Urine Blood Negative Negative /uL Urine Nitrite Negative Negative Urine Bilirubin Negative Negative Urine Urobilinogen Normal Negative mg/dL Urine Leukocyte Esterase Negative Negative /uL Urine RBC 1 0 - 4 /hpf Urine Microscopic WBC < 1 0-5 /HPF Urine Squamous Epithelial Cells Few <5 /hpf Urine Bacteria None seen None Seen /hpf Urine Glucose Trace Normal mg/dL White Blood Count 8.8 4.4-10.8 10^3/uL Red Blood Count 4.71 4.0-5.20 10^6/uL Hemoglobin 11.9 L 12.2-16.2 g/dL Hematocrit 36.3 36.0-46.0 % Mean Corpuscular Volume 77.0 L 80.0-100.0 fL Mean Corpuscular Hemoglobin 25.2 L 28.0-32.0 pg Mean Corpuscular Hemoglobin Concent 32.7 32.0-36.0 g/dL Red Cell Distribution Width 19.9 H 11.8-14.3 % Platelet Count 294 140-450 10^3/uL Mean Platelet Volume 9.0 6.9-10.8 fL Neutrophils (%) (Auto) 75.8 37.0-80.0 % Lymphocytes (%) (Auto) 17.7 10.0-50.0 % Monocytes (%) (Auto) 5.5 0.0-12.0 % Eosinophils (%) (Auto) 0.8 0.0-7.0 % Basophils (%) (Auto) 0.2 0.0-2.0 % Neutrophils # (Auto) 6.6 1.6-8.6 10 ^3/uL Lymphocytes # (Auto) 1.6 0.4-5.4 10 ^3/uL Monocytes # (Auto) 0.5 0-1.3 10 ^3/uL Eosinophils # (Auto) 0.1 0-0.8 10 ^3/uL Basophils # (Auto) 0 0-0.2 10 ^3/uL Nucleated Red Blood Cells 0.1 % Sodium Level 140 136-145 mmol/L Potassium Level 3.5 3.5-5.1 mmol/L Chloride Level 107 98-107 mmol/L Carbon Dioxide Level 23 20-31 mmol/L Anion Gap 10 5-15 Blood Urea Nitrogen 6 L 9-23 mg/dL Creatinine 0.55 0.550-1.02 mg/dL Glomerular Filtration Rate Calc 124 >90 mL/min BUN/Creatinine Ratio 10.9 10.0-20.0 Serum Glucose 174 H 74-106 mg/dL Calcium Level 8.9 8.7-10.4 mg/dL X-Ray, Labs, Meds, VS Comment Imaging: X-rays and CT scans were reviewed and interpreted by this provider, imaging shows no fractures and no pathological disease. Pending radiology review. Laboratory: Labs reviewed and interpreted by this provider. No significant abnormalities noted. Patient has prior medical visits reviewed. Med reconciliation performed Vital signs reviewed Time of 1ST Reevaluation: 01:32 Reevaluation 1ST: Improved (Patient improved after 1 L fluids, heart rate decreased.) Patient Education/Counseling: Diagnosis, Treatment, Need For Follow Up (Follow up with PCP next available appointment. Return to the emergency department if symptoms worsen.) Family Education/Counseling: Diagnosis Departure 1 Departure Time of Disposition: 01:31 Impression: Primary Impression: Palpitations Disposition: HOME / SELF CARE / HOMELESS Condition: Fair Discharged With: Self Critical Care Note Critical Care Time?: No Stability Stability form required: No Heart Score Heart Score: Heart Score Response (Comments) Value History Slightly Suspicious 0 EKG Normal 0 Age <45 0 Risk Factors No known risk factors 0 Troponin Normal limit 0 Total 0 SHELBY MOORE Apr 13, 2025 01:33
--- NOTE | 2025-04-13 06:07 | ECG ---
[facility] Test Date: 2025-04-12 Test Time: 23:25:43 Pat Name: TREMAINE MEZA Department: ED Room: Gender: F Front Desk Admin: ÁNGELA : 1990 Requested By: SHELBY MOORE Order Number: [id number] Reading MD: Robbie Tripathi Measurements Intervals [place] Rate: 109 P: 50 [place]: 131 QRS: 16 QRSD: 88 T: 0 QT: 399 QTc: 538 Interpretive Statements Sinus tachycardia Borderline T abnormalities, diffuse leads Prolonged QT interval Electronically Signed On 04-14-2025 9:27:21 PDT by Robbie Tripathi Please click the below link to view image of tracing.
--- NOTE | 2025-04-13 06:07 | ECG ---
[facility] Test Date: 2025-04-13 Test Time: 00:34:03 Pat Name: TREMAINE MEZA Department: ED Room: Gender: F Management Planner: ÁNGELA : 1990 Requested By: SHELBY MOORE Order Number: [id number] Reading MD: Robbie Tripathi Measurements Intervals [place] Rate: 88 P: 15 [place]: 158 QRS: 15 QRSD: 98 T: 8 QT: 375 QTc: 454 Interpretive Statements Sinus rhythm Electronically Signed On 04-14-2025 9:27:24 PDT by Robbie Tripathi Please click the below link to view image of tracing.
== END 2025-04-13 03:33 | disposition home or self-care (01) ==
LOC: ER 23:18
DX: R00.2 Palpitations (principal); F41.9 Anxiety disorder, unspecified; Z86.2 Personal history of diseases of the blood and blood-forming organs and certain disorders involving the immune mechanism; Z87.440 Personal history of urinary (tract) infections; Z98.51 Tubal ligation status; Z79.899 Other long term (current) drug therapy; Z88.6 Allergy status to analgesic agent; Z98.890 Other specified postprocedural states
CPT/HCPCS: 36415; 71045; 80048; 81001; 84484; 85025; 93005